=== PATIENT | female | born 1970 | race Caucasian/White ===

== ENCOUNTER 2016-03-24 11:00 | Emergency (ER) | payer OTHER ==
[2016-03-24 11:17] VITALS: BP 145/81; PULSE 85; RESP 16; TEMP 98.2; O2SAT 92
--- NOTE | 2016-03-24 12:51 | UCPHY ---
[id number] Seen by Provider: 03/24/16 12:21 HPI/ROS: CHIEF COMPLAINT: Sinus congestion, sinus headache, and sinus drainage HISTORY OF PRESENT ILLNESS: This is a 45-year-old female in general good health who presents with 10 days of illness. Although she initially thought she was improving she now feels that she is getting worse. She reports sinus pain, sore throat, sinus drainage, low-grade fevers, and mild cough. She is not short of breath. She has been able to eat and drink. She has had an influenza vaccination. She has been using [id number]-epl-[id number] sinus medications. REVIEW OF SYSTEMS: A ten point review of systems was performed and is negative with the exception of the items mentioned in the HPI. Source: Patient Exam Limitations: No limitations - Personal History LMP (Females 10-55): 15-21 Days Ago - Medical/Surgical History Hx Asthma: Yes Hx Chronic Respiratory Disease: No Hx Diabetes: No Hx Cardiac Disease: No Hx Renal Disease: No Hx Cirrhosis: No Hx Alcoholism: No Hx HIV/AIDS: No Hx Splenectomy or Spleen Trauma: No Other PMH: rod - Family History Significant Family History: No pertinent family hx - Social History Smoking Status: Never smoked Additional Social History: Works in [employer]. - Physical Exam Exam: General Appearance: Alert. Vital signs reviewed. Blood pressure 145/81. Eyes: Pupils equal and round, no conjunctival injection, no discharge. Anicteric. ENT, Mouth: Mucous membranes are moist, no oropharyngeal erythema or edema. Tender to palpation over the frontal and maxillary sinuses. No mastoid tenderness. Neck: Mild anterior cervical lymphadenopathy. No meningeal signs. Respiratory: Lungs are clear to auscultation; no wheezes, rales, or rhonchi. Cardiovascular: Regular rate and rhythm; no murmur, rub, or gallop. Gastrointestinal: Abdomen is soft and nontender. Skin: Warm and dry, no rashes on exposed skin, normal color. Neurological: Alert and oriented. Moving all four extremities easily and equally. Psychiatric: Normal affect. Constitutional: Initial Vital Signs Temperature (C) 36.8 C 03/24/16 11:14 Heart Rate 85 03/24/16 11:14 Respiratory Rate 16 03/24/16 11:14 Blood Pressure 145/81 H 03/24/16 11:14 O2 Sat (%) 92 03/24/16 11:14 O2 Delivery Mode Room Air Allergies/Adverse Reactions: No Known Allergies Allergy (Unverified 03/24/16 11:17) Home Medications: Medication Instructions Recorded Amoxicillin/Clavulanate Pot 875 mg PO BID #14 tab 03/24/16 [Augmentin 875 MG TAB (*)] Medical Decision Making ED Course/Re-evaluation: 45-year-old female with signs and symptoms of sinusitis. She understands this is often a viral illness but has been ill for over 10 days and is getting worse. I think that antibiotics are appropriate in this setting. She is given a prescription for Augmentin. She will continue with symptomatic measures and itkc-inm-erctfmg medications. Danger signs were reviewed. She will follow up with her primary care physician. She was noted to be mildly hypertensive in the emergency department. She will have a blood pressure recheck with her primary care physician, Dr. Londono. Differential Diagnosis: Considered a differential diagnosis that includes but is not limited to influenza, viral or bacterial pharyngitis, retropharyngeal abscess, epiglottitis , upper respiratory infection. Departure - Departure Disposition: Home, Routine, Self-Care Clinical Impression: Sinusitis, acute Qualifiers: Sinusitis location: frontal Recurrence: non-recurrent Qualifier Code: (J01.10) Acute frontal sinusitis, unspecified Condition: Good Instructions: Sinusitis (ED) Additional Instructions: Take the Augmentin as prescribed. Continue with pdne-[id number]-inemhra sinus medications if they seem helpful. Consider a Neti pot. Follow up with Dr. Londono if you are not improving. Referrals: [place],. [Primary Care Provider] - As per Instructions Prescriptions: Amoxicillin/Clavulanate Pot [Augmentin 875 MG TAB (*)] 875 mg PO BID #14 tab - PQRS PQRS Measurement: Does not apply.
== END 2016-03-24 13:01 | disposition home or self-care (01) ==
LOC: CED 11:00
DX: J01.10 Acute frontal sinusitis, unspecified (principal)
CPT/HCPCS: G0463-PO